=== PATIENT | male | born 1945 | race Two or more races ===

== ENCOUNTER 2025-05-30 11:53 | Day surgery (SDC) | payer OTHER ==
[~2025-05-30] VITALS: Ht 172.7 cm; Wt 72.4 kg
[~2025-05-30 11:53] MED LIST: Balanced Salt Epinephrine Irrigation Solution 500 mL IR SCH; Moxifloxacin HCL 0.5 MG/0.1 ML 0.4MLSYR LEFTEYE SCH; NS 500 ML IV ONE; PHENYLEPHRINE\\TROPICAMIDE\\TETRACAINE OPHTHALMIC DILATING SOLN LEFTEYE PRN; Povidone-Iodine 450 DROP/30 ML Solution LEFTEYE SCH; Povidone-Iodine 450 DROP/30 ML Solution ONE; Tetracaine HCl/Pf 0.5% Opth Soln 4 ml ONE; Triamcinolone Inj Susp 40 MG / ML 1ML Vial INJ SCH; Triamcinolone Inj Susp 40 MG / ML 1ML Vial ONE
[2025-05-30] MEDS ORDERED: INSULANI SC (13:05)
[2025-05-30] MEDS ORDERED: METF500C PO (13:06)
[2025-05-30] MEDS ORDERED: NS 500 ML IV ONE (13:22)
--- NOTE | 2025-05-30 13:23 | NUR ---
05/30/25 1323 Padmini Fernandez IN AT 1306 DIANNE IN AT 1308 PT DENIES ANY AXIETY AT THIS TIME CALL LIGHT WITHIN REACH
[2025-05-30] MEDS ORDERED: Midazolam HCl 1MG / ML 2ML Vial ONE (13:33)
--- NOTE | 2025-05-30 14:18 | NUR ---
05/30/25 3400 Sara Christianson SISTER AT BEDSIDE
== END 2025-05-30 14:21 | disposition home or self-care (01) ==
LOC: ORSCSDS 11:53
PROVIDERS: Ophthalmology
PROC: 08RK3JZ Replacement of Left Lens with Synthetic Substitute, Percutaneous Approach (ICD-10-PCS; principal; 2025-05-30 13:30)
DX: E11.36 Type 2 diabetes mellitus with diabetic cataract (principal); H25.812 Combined forms of age-related cataract, left eye; I10 Essential (primary) hypertension; Z79.4 Long term (current) use of insulin; Z79.84 Long term (current) use of oral hypoglycemic drugs; Z79.899 Other long term (current) drug therapy
CPT/HCPCS: 82947; J2250; J3301; J7040; V2632